=== PATIENT | female | born 1985 | race African-American/Black ===

== ENCOUNTER 2024-05-19 14:54 | Emergency (ER) | payer SELFPAY ==
[~2024-05-19] VITALS: Ht 160 cm; Wt 60.0 kg
[2024-05-19 14:55] VITALS: O2SAT 97
[2024-05-19 15:02] VITALS: BP 128/89; PULSE 99; RESP 18; TEMP 98.5; O2SAT 100
== END 2024-05-19 17:55 | disposition left against medical advice (07) ==
LOC: ER 14:54
DX: R50.9 Fever, unspecified (principal); Z53.21 Procedure and treatment not carried out due to patient leaving prior to being seen by health care provider